=== PATIENT | male | born 1960 | race Caucasian/White ===

== ENCOUNTER 2017-01-02 20:57 | Emergency (ER) | payer MEDICAID ==
[2015-07-06 12:48] VITALS: BMI 35.9
[~2017-01-02 20:57] MED LIST: AMBIEN10 MG PO; BYSTOLIC5 MG PO; HYDROCODONE-APA1 TAB PO; LASIX20 MG PO; SYNTHROID150 MCG PO; SYNTHROID175 MCG PO; XANAX XR2 MG PO
== END 2017-01-02 22:45 | disposition home or self-care (01) ==
LOC: D.ER 20:57
DX: S00.12XA Contusion of left eyelid and periocular area, initial encounter (principal); W39.XXXA Discharge of firework, initial encounter; Y93.89 Activity, other specified; Y92.89 Other specified places as the place of occurrence of the external cause; H20.9 Unspecified iridocyclitis; E11.9 Type 2 diabetes mellitus without complications; F17.200 Nicotine dependence, unspecified, uncomplicated

== ENCOUNTER 2017-06-17 22:51 | Emergency (ER) | payer MEDICAID ==
[2015-07-06 12:48] VITALS: BMI 35.9
== END 2017-06-18 00:32 | disposition home or self-care (01) ==
LOC: D.ER 22:51
DX: S27.818A Other injury of esophagus (thoracic part), initial encounter (principal); X58.XXXA Exposure to other specified factors, initial encounter; Y93.89 Activity, other specified; Y92.019 Unspecified place in single-family (private) house as the place of occurrence of the external cause; E11.9 Type 2 diabetes mellitus without complications; F17.200 Nicotine dependence, unspecified, uncomplicated

== ENCOUNTER → 2017-06-26 08:45 | Outpatient (CLI) | payer MEDICAID ==
[2015-07-06 12:48] VITALS: BMI 35.9
== END | disposition home or self-care (01) ==
LOC: D.MRI 06-20 10:00
DX: K86.9 Disease of pancreas, unspecified (principal)

== ENCOUNTER 2017-07-25 07:06 | Outpatient (CLI) | payer MEDICAID ==
[~2017-07-25] VITALS: Ht 185.4 cm; Wt 97.7 kg
[2017-07-25 07:49] LABS: BASOPHILS 0.2 % (0-2); EOSINOPHILS 3.3 % (0-7); HEMOGLOBIN 17.1 g/dL (13.5-17.5); IMMATURE GRANULOCYTES 0.3 % (0-5); LYMPHOCYTES 16.7 % (15-50); MCH 27.8 pg (26.0-34.0); MCHC 33.5 g/dL (31.0-37.0); MCV 82.9 fL (80.0-100.0); MEAN PLATELET VOLUME 9.7 fL (7.4-10.4); MONOCYTES 10.3 % (2-11); NEUTROPHILS 69.2 % (40-80); PLATELET COUNT 269 10x3/uL (130-400); RBC 6.15 10x6/uL (4.20-6.10); RDW 14.8 % (11.5-14.5); WBC 10.7 10x3/uL (4.8-10.8)
[2017-07-25 08:08] LABS: APTT 36.2 SECONDS (22.8-39.4); CALCIUM 9.4 mg/dL (8.5-10.1); CARBON DIOXIDE 21.4 mmol/L (21.0-32.0); CREATININE - SERUM 1.1 mg/dL (0.6-1.3); INR 0.98 (0.85-1.17); POTASSIUM - SERUM 4.4 mmol/L (3.5-5.1); PROTIME 12.5 SECONDS (11.6-15.0)
[2017-07-25 08:15] VITALS: BP 120/81; Ht 185.4 cm; Wt 97.7 kg
== END 2017-07-25 15:03 | disposition home or self-care (01) ==
LOC: D.OPS 07:06 → D.CT 10:00 → D.OPS 15:03
PROVIDERS: General Practice
DX: K86.1 Other chronic pancreatitis (principal); F17.200 Nicotine dependence, unspecified, uncomplicated; I10 Essential (primary) hypertension; J44.9 Chronic obstructive pulmonary disease, unspecified; Z01.812 Encounter for preprocedural laboratory examination

== ENCOUNTER 2017-08-16 13:15 | Emergency (ER) | payer MEDICAID ==
[2017-07-25 08:15] VITALS: BMI 28.4
[2017-08-16 14:41] LABS: BASOPHILS 0.2 % (0-2); EOSINOPHILS 2.9 % (0-7); HEMATOCRIT 45.8 % (42.0-54.0); HEMOGLOBIN 15.7 g/dL (13.5-17.5); IMMATURE GRANULOCYTES 0.4 % (0-5); LYMPHOCYTES 14.8 % (15-50); MCH 27.6 pg (26.0-34.0); MCHC 34.3 g/dL (31.0-37.0); MCV 80.6 fL (80.0-100.0); MEAN PLATELET VOLUME 9.3 fL (7.4-10.4); MONOCYTES 11.4 % (2-11); NEUTROPHILS 70.3 % (40-80); PLATELET COUNT 269 10x3/uL (130-400); RBC 5.68 10x6/uL (4.20-6.10); WBC 10.2 10x3/uL (4.8-10.8)
[2017-08-16 14:54] LABS: ALBUMIN 3.5 g/dL (3.4-5.0); ANION GAP 14.6 mmol/L (8-16); BILIRUBIN - TOTAL 0.81 mg/dL (0.2-1.3); CALCIUM 9.3 mg/dL (8.5-10.1); CARBON DIOXIDE 22.8 mmol/L (21.0-32.0); CREATININE - SERUM 1.1 mg/dL (0.6-1.3); POTASSIUM - SERUM 4.4 mmol/L (3.5-5.1); PROTEIN - SERUM 7.8 g/dL (6.4-8.2)
== END 2017-08-16 16:15 | disposition home or self-care (01) ==
LOC: D.ER 13:15
PROVIDERS: Family Medicine
DX: R63.0 Anorexia (principal); R10.13 Epigastric pain; E11.9 Type 2 diabetes mellitus without complications

== ENCOUNTER 2017-10-25 15:06 | Inpatient (IN) | payer MEDICAID ==
[~2017-10-25] VITALS: Ht 185.4 cm; Wt 87.2 kg
[2017-10-25 15:49] LABS: BASOPHILS 0.2 % (0-2); EOSINOPHILS 2.5 % (0-7); HEMOGLOBIN 16.1 g/dL (13.5-17.5); IMMATURE GRANULOCYTES 0.9 % (0-5); LYMPHOCYTES 11.1 % (15-50); MCH 26.4 pg (26.0-34.0); MCHC 33.5 g/dL (31.0-37.0); MCV 78.6 fL (80.0-100.0); MEAN PLATELET VOLUME 9.7 fL (7.4-10.4); MONOCYTES 3.7 % (2-11); NEUTROPHILS 81.6 % (40-80); PLATELET COUNT 307 10x3/uL (130-400); RBC 6.11 10x6/uL (4.20-6.10); RDW 16.7 % (11.5-14.5); WBC 11.7 10x3/uL (4.8-10.8)
[2017-10-25 16:03] LABS: ALBUMIN 3.4 g/dL (3.4-5.0); ANION GAP 39.7 mmol/L (8-16); BILIRUBIN - TOTAL 1.84 mg/dL (0.2-1.3); CALCIUM 10.5 mg/dL (8.5-10.1); CARBON DIOXIDE 11.9 mmol/L (21.0-32.0); CREATININE - SERUM 1.6 mg/dL (0.6-1.3); POTASSIUM - SERUM 5.6 mmol/L (3.5-5.1); PROTEIN - SERUM 8.7 g/dL (6.4-8.2)
[2017-10-25 17:54] LABS: MAGNESIUM - SERUM 2.2 mg/dL (1.8-2.4)
[2017-10-25 17:57] LABS: KETONE - SERUM LARGE mg/dL (NEGATIVE)
[2017-10-25 23:00] VITALS: BP 106/77
[2017-10-26] VITALS (29 sets, daily range): BP systolic 66–122; BP diastolic 44–88; Ht 185.4 cm; Wt 87.2 kg
[2017-10-26 00:57] LABS: APPEARANCE CLEAR (CLEAR); BILIRUBIN NEGATIVE (NEGATIVE); COLOR YELLOW (YELLOW); GLUCOSE NEGATIVE (NEGATIVE); KETONE NEGATIVE (NEGATIVE); NITRITE NEGATIVE (NEGATIVE); PROTEIN NEGATIVE (NEGATIVE); SPECIFIC GRAVITY 1.015 (1.005-1.020); UROBILINOGEN NORMAL (NORMAL)
[2017-10-26 01:22] LABS: CALC OSMOLALITY 278 mosm/kg (275-300); CARBON DIOXIDE 21.9 mmol/L (21.0-32.0); CHLORIDE - SERUM 97 mmol/L (98-107); CREATININE - SERUM 1.2 mg/dL (0.6-1.3); GLUCOSE 151 mg/dL (74-106); MAGNESIUM - SERUM 1.9 mg/dL (1.8-2.4); PHOSPHOROUS 3.8 mg/dL (2.5-4.9); POTASSIUM - SERUM 4.1 mmol/L (3.5-5.1); SODIUM 134 mmol/L (136-145); UREA NITROGEN 34 mg/dL (7-18); eGFR NON AFRICAN AMERICAN 66 mL/min (90-120)
[2017-10-26 01:23] LABS: KETONE - SERUM MODERATE mg/dL (NEGATIVE)
[2017-10-26 03:40] LABS: BASOPHILS 0.3 % (0-2); EOSINOPHILS 7.7 % (0-7); HEMATOCRIT 39.5 % (42.0-54.0); HEMOGLOBIN 13.7 g/dL (13.5-17.5); IMMATURE GRANULOCYTES 0.7 % (0-5); MCH 26.2 pg (26.0-34.0); MCHC 34.7 g/dL (31.0-37.0); MCV 75.5 fL (80.0-100.0); MEAN PLATELET VOLUME 9.1 fL (7.4-10.4); MONOCYTES 4.9 % (2-11); NEUTROPHILS 69.4 % (40-80); PLATELET COUNT 205 10x3/uL (130-400); RBC 5.23 10x6/uL (4.20-6.10); RDW 16.3 % (11.5-14.5); WBC 9.8 10x3/uL (4.8-10.8)
[2017-10-26 04:03] LABS: ALBUMIN 2.6 g/dL (3.4-5.0); ANION GAP 13.8 mmol/L (8-16); BILIRUBIN - TOTAL 1.36 mg/dL (0.2-1.3); CREATININE - SERUM 1.3 mg/dL (0.6-1.3); POTASSIUM - SERUM 3.8 mmol/L (3.5-5.1); PROTEIN - SERUM 6.7 g/dL (6.4-8.2)
[2017-10-26] MEDS ORDERED: PROTONIX40 MG PO (06:33)
[2017-10-26] MEDS ORDERED: DURAGESIC1 PATCH .7 TD (06:37)
[2017-10-26] MEDS ORDERED: SYNJARDY PO (06:49)
[2017-10-26 08:49] LABS: CALC OSMOLALITY 266 mosm/kg (275-300); CALCIUM 8.7 mg/dL (8.5-10.1); CARBON DIOXIDE 19.1 mmol/L (21.0-32.0); CHLORIDE - SERUM 98 mmol/L (98-107); GLUCOSE 142 mg/dL (74-106); MAGNESIUM - SERUM 1.8 mg/dL (1.8-2.4); POTASSIUM - SERUM 3.9 mmol/L (3.5-5.1); SODIUM 129 mmol/L (136-145); UREA NITROGEN 28 mg/dL (7-18); eGFR NON AFRICAN AMERICAN 82 mL/min (90-120)
[2017-10-26 12:04] LABS: ANION GAP 12.5 mmol/L (8-16); CALCIUM 8.9 mg/dL (8.5-10.1); CREATININE - SERUM 1.1 mg/dL (0.6-1.3); MAGNESIUM - SERUM 1.9 mg/dL (1.8-2.4); POTASSIUM - SERUM 4.3 mmol/L (3.5-5.1)
[2017-10-26 12:05] LABS: CARBON DIOXIDE 26.8 mmol/L (21.0-32.0)
[2017-10-26 16:25] LABS: ANION GAP 13.4 mmol/L (8-16); CALCIUM 9.1 mg/dL (8.5-10.1); CARBON DIOXIDE 25.1 mmol/L (21.0-32.0); CREATININE - SERUM 1.1 mg/dL (0.6-1.3); MAGNESIUM - SERUM 1.8 mg/dL (1.8-2.4)
[2017-10-26 16:28] LABS: POTASSIUM - SERUM 3.5 mmol/L (3.5-5.1)
[2017-10-27] VITALS (22 sets, daily range): BP systolic 84–122; BP diastolic 57–85
[2017-10-27 04:08] LABS: BASOPHILS 0.1 % (0-2); EOSINOPHILS 10.1 % (0-7); HEMATOCRIT 38.8 % (42.0-54.0); HEMOGLOBIN 13.1 g/dL (13.5-17.5); IMMATURE GRANULOCYTES 0.7 % (0-5); LYMPHOCYTES 22.9 % (15-50); MCHC 33.8 g/dL (31.0-37.0); MEAN PLATELET VOLUME 9.5 fL (7.4-10.4); NEUTROPHILS 60.2 % (40-80); PLATELET COUNT 182 10x3/uL (130-400); RBC 5.04 10x6/uL (4.20-6.10); RDW 16.5 % (11.5-14.5); WBC 7.5 10x3/uL (4.8-10.8)
[2017-10-27 04:16] LABS: KETONE - SERUM NEGATIVE (NEGATIVE)
[2017-10-27 04:27] LABS: ALBUMIN 2.4 g/dL (3.4-5.0); ALKALINE PHOSPHATASE 143 U/L (46-116); ALT (SGPT) 24 U/L (10-68); CALC OSMOLALITY 269 mosm/kg (275-300); CALCIUM 8.8 mg/dL (8.5-10.1); CARBON DIOXIDE 27.2 mmol/L (21.0-32.0); CHLORIDE - SERUM 100 mmol/L (98-107); GLUCOSE 75 mg/dL (74-106); LIPASE 321 U/L (73-393); POTASSIUM - SERUM 3.2 mmol/L (3.5-5.1); PROTEIN - SERUM 6.2 g/dL (6.4-8.2); SODIUM 134 mmol/L (136-145); UREA NITROGEN 20 mg/dL (7-18); eGFR NON AFRICAN AMERICAN 82 mL/min (90-120)
[2017-10-28 02:59] LABS: BASOPHILS 0.3 % (0-2); EOSINOPHILS 9.1 % (0-7); HEMATOCRIT 39.2 % (42.0-54.0); HEMOGLOBIN 12.9 g/dL (13.5-17.5); IMMATURE GRANULOCYTES 0.8 % (0-5); LYMPHOCYTES 24.7 % (15-50); MCH 25.7 pg (26.0-34.0); MCHC 32.9 g/dL (31.0-37.0); MCV 78.1 fL (80.0-100.0); MEAN PLATELET VOLUME 9.1 fL (7.4-10.4); MONOCYTES 8.8 % (2-11); NEUTROPHILS 56.3 % (40-80); PLATELET COUNT 174 10x3/uL (130-400); RBC 5.02 10x6/uL (4.20-6.10); RDW 16.5 % (11.5-14.5); WBC 6.5 10x3/uL (4.8-10.8)
[2017-10-28 03:00] VITALS: BP 107/68
[2017-10-28 03:20] LABS: ALBUMIN 2.5 g/dL (3.4-5.0); ALKALINE PHOSPHATASE 152 U/L (46-116); ALT (SGPT) 24 U/L (10-68); CALCIUM 8.9 mg/dL (8.5-10.1); CARBON DIOXIDE 28.3 mmol/L (21.0-32.0); CHLORIDE - SERUM 102 mmol/L (98-107); LIPASE 393 U/L (73-393); PROTEIN - SERUM 6.4 g/dL (6.4-8.2); SODIUM 136 mmol/L (136-145); eGFR NON AFRICAN AMERICAN 82 mL/min (90-120)
[2017-10-28 03:22] LABS: CALC OSMOLALITY 274 mosm/kg (275-300); GLUCOSE 138 mg/dL (74-106); POTASSIUM - SERUM 4.1 mmol/L (3.5-5.1); UREA NITROGEN 14 mg/dL (7-18)
[2017-10-28 09:05] VITALS: BP 119/90
[2017-10-28] MEDS ORDERED: HUMULIN R100 U/ML SC (09:44)
[2017-10-28] MEDS ORDERED: LEVEMIR100 U/M1 SC (09:45)
== END 2017-10-28 10:37 | disposition home or self-care (01) | DRG 637 ==
LOC: D.ER 15:06 → D.ICU 17:37 → D.EDHOLD 17:37 → D.ICU 21:58
PROVIDERS: Emergency Medicine; Internal Medicine Nephrology; Physician Assistant
DX: E11.10 Type 2 diabetes mellitus with ketoacidosis without coma (principal); K85.90 Acute pancreatitis without necrosis or infection, unspecified; C25.9 Malignant neoplasm of pancreas, unspecified; N17.9 Acute kidney failure, unspecified; E87.1 Hypo-osmolality and hyponatremia; E03.9 Hypothyroidism, unspecified; F17.200 Nicotine dependence, unspecified, uncomplicated

== ENCOUNTER 2017-11-11 15:37 | Emergency (ER) | payer MEDICAID ==
[2017-10-26 10:55] VITALS: BMI 23.4
[~2017-11-11 15:37] MED LIST changes: +DURAGESIC1 PATCH .7 TD; +HUMULIN R100 U/ML SC; +LEVEMIR100 U/M1 SC; +PROTONIX40 MG PO; +SYNJARDY PO
[2017-11-11 16:17] LABS: BASOPHILS 0.5 % (0-2); EOSINOPHILS 3.4 % (0-7); HEMATOCRIT 38.7 % (42.0-54.0); HEMOGLOBIN 12.9 g/dL (13.5-17.5); IMMATURE GRANULOCYTES 0.2 % (0-5); LYMPHOCYTES 19.9 % (15-50); MCH 26.9 pg (26.0-34.0); MCHC 33.3 g/dL (31.0-37.0); MCV 80.8 fL (80.0-100.0); MONOCYTES 2.2 % (2-11); NEUTROPHILS 73.8 % (40-80); PLATELET COUNT 180 10x3/uL (130-400); RBC 4.79 10x6/uL (4.20-6.10); RDW 20.6 % (11.5-14.5); WBC 5.8 10x3/uL (4.8-10.8)
[2017-11-11 16:28] LABS: MAGNESIUM - SERUM 1.8 mg/dL (1.8-2.4)
[2017-11-11 16:30] LABS: ALBUMIN 2.5 g/dL (3.4-5.0); ALKALINE PHOSPHATASE 118 U/L (46-116); ALT (SGPT) 21 U/L (10-68); BILIRUBIN - TOTAL 1.44 mg/dL (0.2-1.3); CALC OSMOLALITY 280 mosm/kg (275-300); CALCIUM 8.9 mg/dL (8.5-10.1); CARBON DIOXIDE 24.5 mmol/L (21.0-32.0); CHLORIDE - SERUM 102 mmol/L (98-107); POTASSIUM - SERUM 4.1 mmol/L (3.5-5.1); PROTEIN - SERUM 7.1 g/dL (6.4-8.2); SODIUM 137 mmol/L (136-145); UREA NITROGEN 13 mg/dL (7-18); eGFR NON AFRICAN AMERICAN 82 mL/min (90-120)
[2017-11-11 16:39] LABS: GLUCOSE 230 mg/dL (74-106)
[2017-11-11 18:02] LABS: APPEARANCE CLEAR (CLEAR); BILIRUBIN NEGATIVE (NEGATIVE); COLOR YELLOW (YELLOW); GLUCOSE 100 mg/dL (NEGATIVE); KETONE NEGATIVE (NEGATIVE); NITRITE NEGATIVE (NEGATIVE); PROTEIN NEGATIVE (NEGATIVE); SPECIFIC GRAVITY 1.015 (1.005-1.020); UROBILINOGEN NORMAL (NORMAL)
[2017-11-11 18:03] LABS: BACTERIA NONE SEEN /hpf (NONE SEEN); EPITHELIAL CELLS 0-5 /hpf (0-5)
== END 2017-11-11 19:24 | disposition home or self-care (01) ==
LOC: D.ER 15:37
PROVIDERS: Family Medicine; Nurse Practitioner Family
DX: R73.9 Hyperglycemia, unspecified (principal); C25.9 Malignant neoplasm of pancreas, unspecified

== ENCOUNTER 2017-11-16 09:23 | Emergency (ER) | payer MEDICAID ==
[2017-10-26 10:55] VITALS: BMI 23.4
== END 2017-11-16 09:51 | disposition home or self-care (01) ==
LOC: D.ER 09:23
DX: I10 Essential (primary) hypertension (principal); F17.200 Nicotine dependence, unspecified, uncomplicated

== ENCOUNTER 2017-12-05 12:29 | Inpatient (IN) | payer MEDICAID ==
[~2017-12-05] VITALS: Ht 185.4 cm; Wt 85.6 kg
[2017-12-05 13:11] LABS: BASOPHILS 0.3 % (0-2); EOSINOPHILS 2.1 % (0-7); HEMATOCRIT 39.4 % (42.0-54.0); HEMOGLOBIN 13.1 g/dL (13.5-17.5); IMMATURE GRANULOCYTES 1.5 % (0-5); LYMPHOCYTES 15.6 % (15-50); MCH 27.1 pg (26.0-34.0); MCHC 33.2 g/dL (31.0-37.0); MCV 81.4 fL (80.0-100.0); MEAN PLATELET VOLUME 9.4 fL (7.4-10.4); NEUTROPHILS 73.5 % (40-80); RBC 4.84 10x6/uL (4.20-6.10); RDW 20.6 % (11.5-14.5); WBC 7.3 10x3/uL (4.8-10.8)
[2017-12-05 13:26] LABS: PLATELET COUNT 240 10x3/uL (130-400)
[2017-12-05 13:28] LABS: ALBUMIN 2.8 g/dL (3.4-5.0); ALT (SGPT) 425 U/L (10-68); AMYLASE - SERUM 117 U/L (25-115); BILIRUBIN - TOTAL 7.35 mg/dL (0.2-1.3); CALC OSMOLALITY 269 mosm/kg (275-300); CALCIUM 9.9 mg/dL (8.5-10.1); CHLORIDE - SERUM 97 mmol/L (98-107); CREATININE - SERUM 0.9 mg/dL (0.6-1.3); GLUCOSE 204 mg/dL (74-106); LIPASE 1213 U/L (73-393); POTASSIUM - SERUM 4.1 mmol/L (3.5-5.1); PROTEIN - SERUM 7.8 g/dL (6.4-8.2); SODIUM 131 mmol/L (136-145); UREA NITROGEN 16 mg/dL (7-18); eGFR NON AFRICAN AMERICAN > 90 mL/min (90-120)
[2017-12-05 13:32] LABS: ALKALINE PHOSPHATASE 1218 U/L (46-116)
[2017-12-05 15:41] LABS: APPEARANCE CLEAR (CLEAR); BILIRUBIN NEGATIVE (NEGATIVE); COLOR YELLOW (YELLOW); GLUCOSE 1000 mg/dL (NEGATIVE); KETONE NEGATIVE (NEGATIVE); NITRITE NEGATIVE (NEGATIVE); PROTEIN TRACE mg/dL (NEGATIVE); UROBILINOGEN NORMAL (NORMAL)
[2017-12-05 21:55] VITALS: BP 136/64
[2017-12-06 00:54] VITALS: BP 112/74
[2017-12-06 04:00] VITALS: BP 118/77
[2017-12-06 06:30] LABS: BASOPHILS 0.3 % (0-2); EOSINOPHILS 2.4 % (0-7); HEMATOCRIT 35.8 % (42.0-54.0); HEMOGLOBIN 12.2 g/dL (13.5-17.5); IMMATURE GRANULOCYTES 1.4 % (0-5); LYMPHOCYTES 13.4 % (15-50); MCH 27.5 pg (26.0-34.0); MCHC 34.1 g/dL (31.0-37.0); MCV 80.8 fL (80.0-100.0); MEAN PLATELET VOLUME 8.6 fL (7.4-10.4); MONOCYTES 7.1 % (2-11); NEUTROPHILS 75.4 % (40-80); RBC 4.43 10x6/uL (4.20-6.10); RDW 20.7 % (11.5-14.5); WBC 8.6 10x3/uL (4.8-10.8)
[2017-12-06 06:35] LABS: PLATELET COUNT 180 10x3/uL (130-400)
[2017-12-06 06:42] LABS: ALBUMIN 2.4 g/dL (3.4-5.0); BILIRUBIN - TOTAL 7.95 mg/dL (0.2-1.3); CALCIUM 9.1 mg/dL (8.5-10.1); CHLORIDE - SERUM 100 mmol/L (98-107); CREATININE - SERUM 0.7 mg/dL (0.6-1.3); MAGNESIUM - SERUM 1.5 mg/dL (1.8-2.4); PHOSPHOROUS 2.7 mg/dL (2.5-4.9); POTASSIUM - SERUM 4.3 mmol/L (3.5-5.1); PROTEIN - SERUM 6.8 g/dL (6.4-8.2); SODIUM 133 mmol/L (136-145); UREA NITROGEN 12 mg/dL (7-18); eGFR NON AFRICAN AMERICAN > 90 mL/min (90-120)
[2017-12-06 06:51] LABS: ALKALINE PHOSPHATASE 1051 U/L (46-116); ALT (SGPT) 315 U/L (10-68); CALC OSMOLALITY 265 mosm/kg (275-300); GLUCOSE 107 mg/dL (74-106)
[2017-12-06 08:59] VITALS: BP 120/76
[2017-12-06 10:28] VITALS: BMI 23.9
[2017-12-06 12:13] VITALS: BP 122/80
[2017-12-06 13:00] VITALS: Ht 185.4 cm; Wt 85.6 kg
[2017-12-06 13:18] LABS: % SATURATION 27 % (15-55); IRON 58 ug/dl (35-150); TOTAL IRON BIND CAPACITY 214 ug/dl (260-445); UNSAT IRON BIND CAPACITY 156 ug/dl (150-375)
[2017-12-06 13:19] LABS: APTT 29.8 SECONDS (22.8-39.4); INR 0.98 (0.85-1.17); PROTIME 12.6 SECONDS (11.6-15.0)
[2017-12-06 13:25] LABS: FERRITIN 364 ng/mL (3-244); LIPASE 510 U/L (73-393)
[2017-12-06 15:43] VITALS: BP 127/85
[2017-12-06 21:08] VITALS: BP 133/89
[2017-12-07 01:39] VITALS: BP 113/70
[2017-12-07 05:29] LABS: BASOPHILS 0.2 % (0-2); EOSINOPHILS 1.9 % (0-7); HEMATOCRIT 34.8 % (42.0-54.0); HEMOGLOBIN 11.6 g/dL (13.5-17.5); LYMPHOCYTES 11.9 % (15-50); MCHC 33.3 g/dL (31.0-37.0); MCV 80.9 fL (80.0-100.0); MEAN PLATELET VOLUME 9.4 fL (7.4-10.4); PLATELET COUNT 208 10x3/uL (130-400); RDW 20.9 % (11.5-14.5); WBC 8.9 10x3/uL (4.8-10.8)
[2017-12-07 05:54] LABS: ALBUMIN 2.3 g/dL (3.4-5.0); ALT (SGPT) 243 U/L (10-68); CALCIUM 8.7 mg/dL (8.5-10.1); CARBON DIOXIDE 22.2 mmol/L (21.0-32.0); CHLORIDE - SERUM 101 mmol/L (98-107); CREATININE - SERUM 0.7 mg/dL (0.6-1.3); LIPASE 656 U/L (73-393); MAGNESIUM - SERUM 1.7 mg/dL (1.8-2.4); POTASSIUM - SERUM 3.7 mmol/L (3.5-5.1); PROTEIN - SERUM 6.5 g/dL (6.4-8.2); SODIUM 134 mmol/L (136-145); UREA NITROGEN 9 mg/dL (7-18); eGFR NON AFRICAN AMERICAN > 90 mL/min (90-120)
[2017-12-07 05:55] LABS: ALKALINE PHOSPHATASE 1038 U/L (46-116); CALC OSMOLALITY 272 mosm/kg (275-300); GLUCOSE 205 mg/dL (74-106)
[2017-12-07 06:14] VITALS: BP 129/90
[2017-12-07 08:51] VITALS: BP 127/87
[2017-12-07 09:20] LABS: FOLATE (FOLIC ACID) - SERUM >20.0 ng/mL (>3.0)
[2017-12-07 12:04] VITALS: BP 120/80
[2017-12-07 16:22] VITALS: BP 117/82
[2017-12-07 22:02] VITALS: BP 128/84
[2017-12-08 01:48] VITALS: BP 126/89
[2017-12-08 05:20] VITALS: BP 125/83
[2017-12-08 05:23] LABS: BASOPHILS 0.4 % (0-2); EOSINOPHILS 2.5 % (0-7); HEMATOCRIT 35.2 % (42.0-54.0); HEMOGLOBIN 11.8 g/dL (13.5-17.5); LYMPHOCYTES 14.2 % (15-50); MCH 27.4 pg (26.0-34.0); MCHC 33.5 g/dL (31.0-37.0); MCV 81.7 fL (80.0-100.0); MEAN PLATELET VOLUME 9.5 fL (7.4-10.4); MONOCYTES 11.7 % (2-11); NEUTROPHILS 70.2 % (40-80); PLATELET COUNT 213 10x3/uL (130-400); RBC 4.31 10x6/uL (4.20-6.10); RDW 21.6 % (11.5-14.5); WBC 7.2 10x3/uL (4.8-10.8)
[2017-12-08 05:42] LABS: ALBUMIN 2.3 g/dL (3.4-5.0); ALKALINE PHOSPHATASE 984 U/L (46-116); ALT (SGPT) 202 U/L (10-68); CALCIUM 9.1 mg/dL (8.5-10.1); CARBON DIOXIDE 25.8 mmol/L (21.0-32.0); CHLORIDE - SERUM 100 mmol/L (98-107); CREATININE - SERUM 0.8 mg/dL (0.6-1.3); GLUCOSE 211 mg/dL (74-106); LIPASE 839 U/L (73-393); MAGNESIUM - SERUM 1.8 mg/dL (1.8-2.4); POTASSIUM - SERUM 3.9 mmol/L (3.5-5.1); PROTEIN - SERUM 6.8 g/dL (6.4-8.2); SODIUM 133 mmol/L (136-145); eGFR NON AFRICAN AMERICAN > 90 mL/min (90-120)
[2017-12-08 05:46] LABS: CALC OSMOLALITY 269 mosm/kg (275-300); UREA NITROGEN 6 mg/dL (7-18)
[2017-12-08 08:13] VITALS: BP 119/72
[2017-12-08] MEDS ORDERED: NICODERM C1 PATCH .1 TRANSDERM (09:51)
[2017-12-09] MEDS ORDERED: HUMULIN R100 U/ML SC (19:56)
== END 2017-12-08 14:20 | disposition home or self-care (01) | DRG 436 ==
LOC: D.ER 12:29 → D.EDHOLD 17:48 → OBSVTIME 17:48 → D.M2 17:58 → D.EDHOLD 17:58 → D.M2 17:58 → D.EDHOLD 17:58 → D.ER 17:58 → D.EDHOLD 18:18 → D.M2 18:18
PROVIDERS: Family Medicine; Internal Medicine Nephrology
DX: C25.9 Malignant neoplasm of pancreas, unspecified (principal); C78.7 Secondary malignant neoplasm of liver and intrahepatic bile duct; R17 Unspecified jaundice; F17.203 Nicotine dependence unspecified, with withdrawal; E87.1 Hypo-osmolality and hyponatremia; E03.9 Hypothyroidism, unspecified; E11.65 Type 2 diabetes mellitus with hyperglycemia; F41.9 Anxiety disorder, unspecified; K21.9 Gastro-esophageal reflux disease without esophagitis; D64.9 Anemia, unspecified; E83.42 Hypomagnesemia

== ENCOUNTER 2017-12-09 17:01 | Observation (INO) | payer MEDICAID ==
[~2017-12-09] VITALS: Ht 185.4 cm; Wt 84.8 kg
[~2017-12-09 17:01] MED LIST changes: +NICODERM C1 PATCH .1 TRANSDERM
[2017-12-09 17:33] LABS: BASOPHILS 0.2 % (0-2); EOSINOPHILS 1.2 % (0-7); HEMATOCRIT 36.4 % (42.0-54.0); HEMOGLOBIN 12.2 g/dL (13.5-17.5); IMMATURE GRANULOCYTES 0.6 % (0-5); LYMPHOCYTES 15.9 % (15-50); MCH 27.5 pg (26.0-34.0); MCHC 33.5 g/dL (31.0-37.0); MCV 82.2 fL (80.0-100.0); MEAN PLATELET VOLUME 9.6 fL (7.4-10.4); MONOCYTES 11.9 % (2-11); NEUTROPHILS 70.2 % (40-80); PLATELET COUNT 210 10x3/uL (130-400); RBC 4.43 10x6/uL (4.20-6.10); RDW 22.7 % (11.5-14.5); WBC 8.6 10x3/uL (4.8-10.8)
[2017-12-09 17:48] LABS: APPEARANCE CLEAR (CLEAR); BILIRUBIN NEGATIVE (NEGATIVE); COLOR YELLOW (YELLOW); GLUCOSE 1000 mg/dL (NEGATIVE); KETONE NEGATIVE (NEGATIVE); NITRITE NEGATIVE (NEGATIVE); PH 7.5 (5.0-6.0); PROTEIN 1+ mg/dL (NEGATIVE); UROBILINOGEN NORMAL (NORMAL)
[2017-12-09 17:52] LABS: BACTERIA FEW /hpf (NONE SEEN); EPITHELIAL CELLS RARE /hpf (0-5); WHITE CELLS - URINE 0-5 /hpf (0-5)
[2017-12-09 18:01] LABS: ALBUMIN 2.3 g/dL (3.4-5.0); ALKALINE PHOSPHATASE 857 U/L (46-116); AMYLASE - SERUM 81 U/L (25-115); BILIRUBIN - TOTAL 2.64 mg/dL (0.2-1.3); CALCIUM 9.1 mg/dL (8.5-10.1); CARBON DIOXIDE 28.1 mmol/L (21.0-32.0); CHLORIDE - SERUM 96 mmol/L (98-107); CREATININE - SERUM 0.9 mg/dL (0.6-1.3); LIPASE 1168 U/L (73-393); SODIUM 132 mmol/L (136-145); eGFR NON AFRICAN AMERICAN > 90 mL/min (90-120)
[2017-12-09 18:04] LABS: ALT (SGPT) 129 U/L (10-68); CALC OSMOLALITY 279 mosm/kg (275-300); GLUCOSE 397 mg/dL (74-106); POTASSIUM - SERUM 4.5 mmol/L (3.5-5.1); UREA NITROGEN 8 mg/dL (7-18)
[2017-12-09] MEDS ORDERED: HUMULIN R100 U/ML SC (19:56)
[2017-12-09 22:43] VITALS: BP 133/82; BMI 24.7
[2017-12-10 00:58] VITALS: BP 119/73
[2017-12-10 05:22] LABS: BASOPHILS 0.3 % (0-2); EOSINOPHILS 1.8 % (0-7); HEMATOCRIT 33.7 % (42.0-54.0); HEMOGLOBIN 11.2 g/dL (13.5-17.5); IMMATURE GRANULOCYTES 0.6 % (0-5); LYMPHOCYTES 14.4 % (15-50); MCH 27.3 pg (26.0-34.0); MCHC 33.2 g/dL (31.0-37.0); MCV 82.2 fL (80.0-100.0); MEAN PLATELET VOLUME 9.8 fL (7.4-10.4); MONOCYTES 14.8 % (2-11); NEUTROPHILS 68.1 % (40-80); PLATELET COUNT 192 10x3/uL (130-400); RDW 22.7 % (11.5-14.5); WBC 7.2 10x3/uL (4.8-10.8)
[2017-12-10 05:46] LABS: ALBUMIN 2.2 g/dL (3.4-5.0); ALKALINE PHOSPHATASE 769 U/L (46-116); ALT (SGPT) 103 U/L (10-68); CALC OSMOLALITY 275 mosm/kg (275-300); CALCIUM 8.8 mg/dL (8.5-10.1); CARBON DIOXIDE 27.7 mmol/L (21.0-32.0); CHLORIDE - SERUM 98 mmol/L (98-107); CREATININE - SERUM 0.8 mg/dL (0.6-1.3); POTASSIUM - SERUM 4.3 mmol/L (3.5-5.1); PROTEIN - SERUM 6.4 g/dL (6.4-8.2); SODIUM 132 mmol/L (136-145); UREA NITROGEN 8 mg/dL (7-18); eGFR NON AFRICAN AMERICAN > 90 mL/min (90-120)
[2017-12-10 05:50] LABS: GLUCOSE 340 mg/dL (74-106)
[2017-12-10 08:25] VITALS: BP 125/78
[2017-12-10 13:22] VITALS: BP 132/90
[2017-12-10 13:46] LABS: AMYLASE - SERUM 76 U/L (25-115); LIPASE 1021 U/L (73-393)
[2017-12-10 14:06] VITALS: Ht 185.4 cm; Wt 84.8 kg
[2017-12-10 16:55] VITALS: BP 124/86
[2017-12-10 20:00] VITALS: BP 137/81
[2017-12-11 00:18] VITALS: BP 115/76
[2017-12-11 04:10] VITALS: BP 118/79
[2017-12-11 06:18] LABS: BASOPHILS 0.2 % (0-2); EOSINOPHILS 1.6 % (0-7); HEMATOCRIT 38.5 % (42.0-54.0); HEMOGLOBIN 12.8 g/dL (13.5-17.5); IMMATURE GRANULOCYTES 0.4 % (0-5); LYMPHOCYTES 15.7 % (15-50); MCH 27.8 pg (26.0-34.0); MCHC 33.2 g/dL (31.0-37.0); MCV 83.5 fL (80.0-100.0); MONOCYTES 13.1 % (2-11); PLATELET COUNT 211 10x3/uL (130-400); RBC 4.61 10x6/uL (4.20-6.10); RDW 23.5 % (11.5-14.5); WBC 9.4 10x3/uL (4.8-10.8)
[2017-12-11 06:48] LABS: ALBUMIN 2.4 g/dL (3.4-5.0); ALKALINE PHOSPHATASE 798 U/L (46-116); ALT (SGPT) 87 U/L (10-68); CALCIUM 9.3 mg/dL (8.5-10.1); CARBON DIOXIDE 26.6 mmol/L (21.0-32.0); CHLORIDE - SERUM 98 mmol/L (98-107); CREATININE - SERUM 0.9 mg/dL (0.6-1.3); POTASSIUM - SERUM 4.3 mmol/L (3.5-5.1); PROTEIN - SERUM 7.3 g/dL (6.4-8.2); SODIUM 135 mmol/L (136-145); eGFR NON AFRICAN AMERICAN > 90 mL/min (90-120)
[2017-12-11 06:50] LABS: CALC OSMOLALITY 276 mosm/kg (275-300); GLUCOSE 250 mg/dL (74-106); UREA NITROGEN 11 mg/dL (7-18)
[2017-12-11 08:28] VITALS: BP 116/70
[2017-12-11] MEDS ORDERED: NICODERM C1 PATCH .1 TRANSDERM (12:52)
[2017-12-11 14:51] VITALS: BP 111/75
== END 2017-12-11 16:02 | disposition home or self-care (01) ==
LOC: D.ER 17:01 → D.MS 21:55 → OBSVTIME 21:55 → D.MS 21:55
PROVIDERS: Emergency Medicine; Family Medicine
DX: E11.65 Type 2 diabetes mellitus with hyperglycemia (principal); Z79.4 Long term (current) use of insulin; C25.9 Malignant neoplasm of pancreas, unspecified; F17.203 Nicotine dependence unspecified, with withdrawal

== ENCOUNTER 2017-12-27 14:14 | Emergency (ER) | payer MEDICAID ==
[2017-12-10 14:06] VITALS: BMI 24.6
[2017-12-27 19:14] VITALS: BP 000/000
== END 2017-12-27 14:35 | disposition left against medical advice (07) ==
LOC: D.ER 14:14
DX: R10.9 Unspecified abdominal pain (principal); R11.0 Nausea

== ENCOUNTER 2018-01-16 21:19 | Emergency (ER) | payer MEDICAID ==
[~2018-01-16] VITALS: Ht 185.4 cm; Wt 75.5 kg
[2018-01-16 21:25] VITALS: BP 102/66; Ht 185.4 cm; Wt 75.5 kg
[2018-01-16 22:06] LABS: BASOPHILS 0.2 % (0-2); EOSINOPHILS 1.7 % (0-7); HEMATOCRIT 34.8 % (42.0-54.0); HEMOGLOBIN 11.7 g/dL (13.5-17.5); IMMATURE GRANULOCYTES 0.6 % (0-5); LYMPHOCYTES 14.1 % (15-50); MCHC 33.6 g/dL (31.0-37.0); MCV 86.1 fL (80.0-100.0); MEAN PLATELET VOLUME 9.6 fL (7.4-10.4); MONOCYTES 8.7 % (2-11); NEUTROPHILS 74.7 % (40-80); RBC 4.04 10x6/uL (4.20-6.10); RDW 17.5 % (11.5-14.5); WBC 11.6 10x3/uL (4.8-10.8)
[2018-01-16 22:21] LABS: ALBUMIN 2.2 g/dL (3.4-5.0); ALKALINE PHOSPHATASE 328 U/L (46-116); ALT (SGPT) 34 U/L (10-68); BILIRUBIN - TOTAL 1.58 mg/dL (0.2-1.3); CALC OSMOLALITY 281 mosm/kg (275-300); CALCIUM 9.2 mg/dL (8.5-10.1); CARBON DIOXIDE 27.7 mmol/L (21.0-32.0); CHLORIDE - SERUM 99 mmol/L (98-107); POTASSIUM - SERUM 4.8 mmol/L (3.5-5.1); SODIUM 133 mmol/L (136-145); UREA NITROGEN 21 mg/dL (7-18); eGFR NON AFRICAN AMERICAN 82 mL/min (90-120)
[2018-01-16 22:22] LABS: GLUCOSE 332 mg/dL (74-106)
[2018-01-16 22:30] LABS: AMYLASE - SERUM 106 U/L (25-115); CKMB 0.5 U/L (0.0-3.6); CREATINE KINASE 20 UL (21-232); LIPASE 1321 U/L (73-393); TROPONIN-I < 0.017 ng/mL (0.000-0.060)
[2018-01-16 22:45] LABS: PLATELET COUNT 287 10x3/uL (130-400)
[2018-01-16 23:23] LABS: APPEARANCE CLEAR (CLEAR); BILIRUBIN NEGATIVE (NEGATIVE); COLOR YELLOW (YELLOW); GLUCOSE 1000 mg/dL (NEGATIVE); KETONE NEGATIVE (NEGATIVE); NITRITE NEGATIVE (NEGATIVE); PROTEIN 2+ mg/dL (NEGATIVE); UROBILINOGEN NORMAL (NORMAL)
[2018-01-16 23:24] LABS: BACTERIA FEW /hpf (NONE SEEN); EPITHELIAL CELLS 0-5 /hpf (0-5); RED CELLS - URINE 0-5 /hpf (0-5); WHITE CELLS - URINE 0-5 /hpf (0-5)
[2018-01-17] MEDS ORDERED: DILAUDID4 MG PO (05:19)
[2018-01-18] MEDS ORDERED: ZINC-220220 MG PO (11:47)
[2018-01-18] MEDS ORDERED: MIRALAX17 GM PO (11:48)
== END 2018-01-17 00:50 | disposition left against medical advice (07) ==
LOC: D.ER 21:19
PROVIDERS: Family Medicine
DX: I81 Portal vein thrombosis (principal); C25.9 Malignant neoplasm of pancreas, unspecified; C22.8 Malignant neoplasm of liver, primary, unspecified as to type; E11.9 Type 2 diabetes mellitus without complications

== ENCOUNTER 2018-01-17 03:43 | Inpatient (IN) | payer MEDICAID ==
[~2018-01-17] VITALS: Ht 185.4 cm; Wt 76.9 kg
[2018-01-17 04:35] LABS: BASOPHILS 0.1 % (0-2); EOSINOPHILS 1.6 % (0-7); HEMATOCRIT 33.7 % (42.0-54.0); HEMOGLOBIN 11.1 g/dL (13.5-17.5); MCH 28.7 pg (26.0-34.0); MCHC 32.9 g/dL (31.0-37.0); MCV 87.1 fL (80.0-100.0); MEAN PLATELET VOLUME 9.5 fL (7.4-10.4); NEUTROPHILS 77.3 % (40-80); PLATELET COUNT 248 10x3/uL (130-400); RBC 3.87 10x6/uL (4.20-6.10); RDW 17.8 % (11.5-14.5); WBC 8.8 10x3/uL (4.8-10.8)
[2018-01-17 04:52] LABS: ALBUMIN 2.2 g/dL (3.4-5.0); ANION GAP 10.8 mmol/L (8-16); BILIRUBIN - TOTAL 1.49 mg/dL (0.2-1.3); CALCIUM 8.8 mg/dL (8.5-10.1); CARBON DIOXIDE 27.8 mmol/L (21.0-32.0); CREATININE - SERUM 1.1 mg/dL (0.6-1.3); POTASSIUM - SERUM 4.6 mmol/L (3.5-5.1); PROTEIN - SERUM 7.6 g/dL (6.4-8.2)
[2018-01-17] MEDS ORDERED: DILAUDID4 MG PO (05:19)
[2018-01-17 06:27] VITALS: BP 106/68; BMI 21.9
[2018-01-17 07:39] VITALS: BP 117/76
[2018-01-17 10:41] LABS: APTT 34.7 SECONDS (22.8-39.4); INR 0.97 (0.85-1.17); PROTIME 12.5 SECONDS (11.6-15.0)
[2018-01-17 11:04] LABS: % SATURATION 11 % (15-55); IRON 20 ug/dl (35-150); TOTAL IRON BIND CAPACITY 178 ug/dl (260-445); UNSAT IRON BIND CAPACITY 158 ug/dl (150-375)
[2018-01-17 12:15] VITALS: BP 113/71
[2018-01-17 12:26] VITALS: BMI 21.9
[2018-01-17 13:21] VITALS: Ht 185.4 cm; Wt 76.9 kg
[2018-01-17 15:43] VITALS: BP 99/61
[2018-01-17 18:42] LABS: APPEARANCE CLEAR (CLEAR); BILIRUBIN NEGATIVE (NEGATIVE); COLOR DK YELLOW (YELLOW); GLUCOSE 1000 mg/dL (NEGATIVE); KETONE NEGATIVE (NEGATIVE); NITRITE NEGATIVE (NEGATIVE); PROTEIN TRACE mg/dL (NEGATIVE); UROBILINOGEN NORMAL (NORMAL)
[2018-01-17 20:01] VITALS: BP 102/52
[2018-01-17 20:04] VITALS: BP 102/52
[2018-01-18 00:25] VITALS: BP 102/52
[2018-01-18 04:59] VITALS: BP 110/42; BP 118/84
[2018-01-18 06:25] LABS: BASOPHILS 0.2 % (0-2); HEMATOCRIT 31.9 % (42.0-54.0); HEMOGLOBIN 10.4 g/dL (13.5-17.5); IMMATURE GRANULOCYTES 0.6 % (0-5); LYMPHOCYTES 13.4 % (15-50); MCHC 32.6 g/dL (31.0-37.0); MCV 85.8 fL (80.0-100.0); MEAN PLATELET VOLUME 9.9 fL (7.4-10.4); MONOCYTES 9.6 % (2-11); NEUTROPHILS 74.2 % (40-80); PLATELET COUNT 234 10x3/uL (130-400); RBC 3.72 10x6/uL (4.20-6.10); RDW 17.4 % (11.5-14.5); WBC 9.6 10x3/uL (4.8-10.8)
[2018-01-18 06:43] LABS: ALKALINE PHOSPHATASE 261 U/L (46-116); ALT (SGPT) 26 U/L (10-68); BILIRUBIN - TOTAL 1.35 mg/dL (0.2-1.3); CALCIUM 8.5 mg/dL (8.5-10.1); CARBON DIOXIDE 22.5 mmol/L (21.0-32.0); CHLORIDE - SERUM 102 mmol/L (98-107); LIPASE 1207 U/L (73-393); SODIUM 133 mmol/L (136-145); UREA NITROGEN 21 mg/dL (7-18)
[2018-01-18 06:49] LABS: CALC OSMOLALITY 273 mosm/kg (275-300); CREATININE - SERUM 0.8 mg/dL (0.6-1.3); GLUCOSE 195 mg/dL (74-106); POTASSIUM - SERUM 3.6 mmol/L (3.5-5.1); eGFR NON AFRICAN AMERICAN > 90 mL/min (90-120)
[2018-01-18 08:29] LABS: FOLATE (FOLIC ACID) - SERUM 13.6 ng/mL (>3.0)
[2018-01-18 09:36] VITALS: BP 107/63
[2018-01-18] MEDS ORDERED: ZINC-220220 MG PO (11:47)
[2018-01-18] MEDS ORDERED: MIRALAX17 GM PO (11:48)
== END 2018-01-18 14:24 | disposition home or self-care (01) | DRG 439 ==
LOC: D.ER 03:43 → D.EDHOLD 04:10 → D.MS 04:10
PROVIDERS: Family Medicine; Internal Medicine Nephrology
DX: K85.90 Acute pancreatitis without necrosis or infection, unspecified (principal); C25.9 Malignant neoplasm of pancreas, unspecified; C78.7 Secondary malignant neoplasm of liver and intrahepatic bile duct; F17.213 Nicotine dependence, cigarettes, with withdrawal; K76.6 Portal hypertension; E87.1 Hypo-osmolality and hyponatremia; N17.9 Acute kidney failure, unspecified; K86.1 Other chronic pancreatitis; E11.65 Type 2 diabetes mellitus with hyperglycemia; F41.9 Anxiety disorder, unspecified; D63.8 Anemia in other chronic diseases classified elsewhere; E03.9 Hypothyroidism, unspecified; Z91.14 Patient's other noncompliance with medication regimen

== ENCOUNTER 2018-01-21 23:05 | Inpatient (IN) | payer MEDICAID ==
[~2018-01-21] VITALS: Ht 185.4 cm; Wt 76.7 kg
--- NOTE | ~2018-01-21 | MORECARE ---
CASE MANAGEMENT DISCHARGE SUMMARY PATIENT: YENNI TAVERA UNIT: [id number] ADM DATE: 01/22/18 AGE: 57 : 62 SEX: M ROOM/BED: D.2201 AUTHOR: AICHA, CLINICAL LABORATORY MANAGER PHYSICIAN: REFERRING PHYSICIAN: PORSCHE MERCADO MD DATE OF SERVICE: 01/22/18 Discharge Plan Patient Name: YENNI TAVERA Facility: [facility]:[place] : 1960 Planned Disposition: Anticipated Discharge Date: Discharge Date: 01/29/2018 Expected LOS: 0 Initial Reviewer: [email or web address] Initial Review Date: 01/25/2018 Generated: 01/31/18 11:25 am Comments DCP- Discharge Planning Updated by [email or web address]: Kathi Dumas on 01/25/18 1:[address] Patient Name: YENNI TAVERA Admission Status: ER Accout number: [id number] Admission Date: 01-22-2018 : 1960 Admission Diagnosis:NAUSEA WITH VOMITING, UNSPECIFIED Attending: PORSCHE MERCADO Current LOS: 3 Anticipated DC Date: Planned Disposition: Primary Insurance: [place]ICAID [place] Discharge Planning Comments: CM met with patient about discharge planning and needs. [facility]. [facility] has appointment with oncology at [facility] on 01/31 at 13:40. [facility] want's to be discharged from here before his appointment. [facility] with [facility] Home environment safe. [facility] had follow up appointment with MD scheduled after last discharge but was readmitted before his appointment. Patient wants to know if can pick up and delivery driver his cane from [facility]. CM will continue to follow and assist patient as needed with discharge planning/needs. Submersible Pilot: Kathi Dumas DCPIA - Discharge Planning Initial Assessment Updated by [email or web address]: Kathi Dumas on 01/25/18 2:13 pm * Is the patient Alert and Oriented? Yes * How many steps to enterexit or inside your home? * PCP Abelardo * [facility] * Preadmission Environment Home with Family * ADLs Independent * Equipment Bedside Commode * Other Equipment Bedside commode, rolling walker,shower chair, wheelchair, cane, glucometer * List name and contact numbers for known caregivers / representatives who currently or will assist patient after discharge: radha Garcia, [phone] * Verbal permission to speak to the caregivers and representatives has been obtained from the patient. Yes * Community resources currently utilized None * Additional services required to return to the preadmission environment? No * Can the patient safely return to the preadmission environment? Yes * Has this patient been hospitalized within the prior 30 days at any hospital? Yes Patient Name: YENNI TAVERA Page [id number] All edits/amendments must be made on the electronic document DICTATION DATE: 01/31/18 1024 FILLING AND PACKING SUPERVISOR: 01/31/18 1024 RPT#: [id number] DC DATE:01/29/18 STATUS: DIS IN [facility] [address] [place] [address] END OF REPORT
[~2018-01-21 23:05] MED LIST changes: +DILAUDID4 MG PO; +MIRALAX17 GM PO; +ZINC-220220 MG PO
[2018-01-22 00:09] LABS: HEMATOCRIT 34.1 % (42.0-54.0); HEMOGLOBIN 11.5 g/dL (13.5-17.5); LYMPHOCYTES 12.2 % (15-50); MCH 28.3 pg (26.0-34.0); MCHC 33.7 g/dL (31.0-37.0); NEUTROPHILS 80.6 % (40-80); PLATELET COUNT 278 10x3/uL (130-400); RBC 4.06 10x6/uL (4.20-6.10); RDW 16.7 % (11.5-14.5); WBC 11.1 10x3/uL (4.8-10.8)
[2018-01-22 00:23] LABS: ALBUMIN 2.2 g/dL (3.4-5.0); ALKALINE PHOSPHATASE 288 U/L (46-116); ALT (SGPT) 28 U/L (10-68); BILIRUBIN - TOTAL 1.58 mg/dL (0.2-1.3); CALC OSMOLALITY 282 mosm/kg (275-300); CARBON DIOXIDE 27.7 mmol/L (21.0-32.0); CHLORIDE - SERUM 98 mmol/L (98-107); CREATININE - SERUM 0.8 mg/dL (0.6-1.3); POTASSIUM - SERUM 4.2 mmol/L (3.5-5.1); PROTEIN - SERUM 7.8 g/dL (6.4-8.2); SODIUM 132 mmol/L (136-145); UREA NITROGEN 17 mg/dL (7-18); eGFR NON AFRICAN AMERICAN > 90 mL/min (90-120)
[2018-01-22 00:24] LABS: GLUCOSE 384 mg/dL (74-106)
[2018-01-22 00:25] LABS: AMYLASE - SERUM 105 U/L (25-115); LIPASE 1393 U/L (73-393)
[2018-01-22 00:32] LABS: TROPONIN-I < 0.017 ng/mL (0.000-0.060)
[2018-01-22 03:18] LABS: APPEARANCE CLEAR (CLEAR); COLOR YELLOW (YELLOW); NITRITE NEGATIVE (NEGATIVE); PROTEIN 1+ mg/dL (NEGATIVE)
[2018-01-22 03:19] LABS: BILIRUBIN NEGATIVE (NEGATIVE); GLUCOSE 1000 mg/dL (NEGATIVE); KETONE NEGATIVE (NEGATIVE); UROBILINOGEN NORMAL (NORMAL)
[2018-01-22 03:22] LABS: BACTERIA FEW /hpf (NONE SEEN); EPITHELIAL CELLS 0-5 /hpf (0-5); RED CELLS - URINE 0-5 /hpf (0-5); WHITE CELLS - URINE 0-5 /hpf (0-5)
[2018-01-22 03:23] LABS: MUCUS <1+ /lpf (NONE SEEN)
[2018-01-22 06:26] LABS: TROPONIN-I < 0.017 ng/mL (0.000-0.060)
[2018-01-22 08:55] LABS: CKMB 0.4 U/L (0.0-3.6); CREATINE KINASE 37 UL (21-232)
[2018-01-22 09:45] VITALS: BP 116/79
[2018-01-22 12:56] LABS: CREATINE KINASE 198 UL (21-232)
[2018-01-22 12:57] LABS: TROPONIN-I < 0.017 ng/mL (0.000-0.060)
[2018-01-22 16:52] VITALS: BP 121/79
[2018-01-22 18:51] LABS: CKMB 1.1 U/L (0.0-3.6); CREATINE KINASE 147 UL (21-232)
[2018-01-22 18:52] LABS: TROPONIN-I < 0.017 ng/mL (0.000-0.060)
[2018-01-22 18:55] VITALS: BP 124/81
[2018-01-22 20:04] VITALS: BP 120/72
[2018-01-22 23:59] VITALS: BP 113/70
[2018-01-23] VITALS (7 sets, daily range): BP systolic 104–129; BP diastolic 65–80; Ht 185.4 cm; Wt 76.7 kg
[2018-01-23 05:36] LABS: BASOPHILS 0.1 % (0-2); EOSINOPHILS 1.4 % (0-7); HEMATOCRIT 30.3 % (42.0-54.0); HEMOGLOBIN 10.4 g/dL (13.5-17.5); IMMATURE GRANULOCYTES 0.7 % (0-5); LYMPHOCYTES 12.5 % (15-50); MCH 28.9 pg (26.0-34.0); MCHC 34.3 g/dL (31.0-37.0); MCV 84.2 fL (80.0-100.0); MONOCYTES 9.2 % (2-11); NEUTROPHILS 76.1 % (40-80); RDW 16.9 % (11.5-14.5); WBC 8.6 10x3/uL (4.8-10.8)
[2018-01-23 05:50] LABS: ALKALINE PHOSPHATASE 246 U/L (46-116); ALT (SGPT) 25 U/L (10-68); BILIRUBIN - TOTAL 1.48 mg/dL (0.2-1.3); CALCIUM 8.5 mg/dL (8.5-10.1); CARBON DIOXIDE 25.7 mmol/L (21.0-32.0); CHLORIDE - SERUM 101 mmol/L (98-107); CREATININE - SERUM 0.6 mg/dL (0.6-1.3); POTASSIUM - SERUM 4.1 mmol/L (3.5-5.1); PROTEIN - SERUM 6.1 g/dL (6.4-8.2); SODIUM 134 mmol/L (136-145); UREA NITROGEN 13 mg/dL (7-18); eGFR NON AFRICAN AMERICAN > 90 mL/min (90-120)
[2018-01-23 05:52] LABS: PLATELET COUNT 197 10x3/uL (130-400)
[2018-01-23 06:00] LABS: CALC OSMOLALITY 273 mosm/kg (275-300); GLUCOSE 215 mg/dL (74-106)
[2018-01-23 11:25] LABS: AMYLASE - SERUM 131 U/L (25-115)
[2018-01-23 11:28] LABS: LIPASE 1712 U/L (73-393)
[2018-01-24 04:00] VITALS: BP 113/74
[2018-01-24 06:00] LABS: BASOPHILS 0.1 % (0-2); EOSINOPHILS 1.9 % (0-7); HEMATOCRIT 30.3 % (42.0-54.0); HEMOGLOBIN 9.9 g/dL (13.5-17.5); IMMATURE GRANULOCYTES 0.5 % (0-5); LYMPHOCYTES 12.6 % (15-50); MCH 27.2 pg (26.0-34.0); MCHC 32.7 g/dL (31.0-37.0); MCV 83.2 fL (80.0-100.0); MEAN PLATELET VOLUME 9.7 fL (7.4-10.4); MONOCYTES 9.6 % (2-11); NEUTROPHILS 75.3 % (40-80); PLATELET COUNT 194 10x3/uL (130-400); RBC 3.64 10x6/uL (4.20-6.10); RDW 16.8 % (11.5-14.5); WBC 7.9 10x3/uL (4.8-10.8)
[2018-01-24 06:32] LABS: ALBUMIN 1.9 g/dL (3.4-5.0); ALKALINE PHOSPHATASE 211 U/L (46-116); ALT (SGPT) 19 U/L (10-68); AMYLASE - SERUM 123 U/L (25-115); BILIRUBIN - TOTAL 1.36 mg/dL (0.2-1.3); CALCIUM 8.4 mg/dL (8.5-10.1); CARBON DIOXIDE 24.8 mmol/L (21.0-32.0); CHLORIDE - SERUM 100 mmol/L (98-107); CREATININE - SERUM 0.6 mg/dL (0.6-1.3); GLUCOSE 222 mg/dL (74-106); POTASSIUM - SERUM 3.9 mmol/L (3.5-5.1); PROTEIN - SERUM 5.7 g/dL (6.4-8.2); SODIUM 133 mmol/L (136-145); eGFR NON AFRICAN AMERICAN > 90 mL/min (90-120)
[2018-01-24 06:39] LABS: CALC OSMOLALITY 271 mosm/kg (275-300); LIPASE 1697 U/L (73-393); UREA NITROGEN 9 mg/dL (7-18)
[2018-01-24 09:50] VITALS: BP 124/73
[2018-01-24 13:45] VITALS: BP 116/76
[2018-01-24 18:26] VITALS: BP 102/61
[2018-01-24 19:26] VITALS: BP 126/86
[2018-01-24 20:08] VITALS: BP 112/73
[2018-01-25 05:20] LABS: BASOPHILS 0.1 % (0-2); EOSINOPHILS 1.2 % (0-7); HEMATOCRIT 30.7 % (42.0-54.0); HEMOGLOBIN 9.9 g/dL (13.5-17.5); IMMATURE GRANULOCYTES 0.7 % (0-5); LYMPHOCYTES 14.9 % (15-50); MCHC 32.2 g/dL (31.0-37.0); MCV 83.9 fL (80.0-100.0); MEAN PLATELET VOLUME 9.8 fL (7.4-10.4); NEUTROPHILS 74.1 % (40-80); PLATELET COUNT 206 10x3/uL (130-400); RBC 3.66 10x6/uL (4.20-6.10); RDW 16.9 % (11.5-14.5); WBC 8.6 10x3/uL (4.8-10.8)
[2018-01-25 05:27] LABS: ALBUMIN 1.9 g/dL (3.4-5.0); AMYLASE - SERUM 131 U/L (25-115); CALC OSMOLALITY 269 mosm/kg (275-300); CALCIUM 8.3 mg/dL (8.5-10.1); CARBON DIOXIDE 28.1 mmol/L (21.0-32.0); CHLORIDE - SERUM 100 mmol/L (98-107); CREATININE - SERUM 0.7 mg/dL (0.6-1.3); GLUCOSE 175 mg/dL (74-106); LIPASE 1389 U/L (73-393); POTASSIUM - SERUM 4.2 mmol/L (3.5-5.1); SODIUM 134 mmol/L (136-145); UREA NITROGEN 7 mg/dL (7-18); eGFR NON AFRICAN AMERICAN > 90 mL/min (90-120)
[2018-01-25 05:52] LABS: ALKALINE PHOSPHATASE 224 U/L (46-116); ALT (SGPT) 19 U/L (10-68); BILIRUBIN - TOTAL 1.33 mg/dL (0.2-1.3); PROTEIN - SERUM 5.9 g/dL (6.4-8.2)
[2018-01-25 08:09] VITALS: BP 111/74
[2018-01-25 12:47] VITALS: BP 115/73
[2018-01-25 15:58] VITALS: BP 131/78
[2018-01-25 20:05] VITALS: BP 107/68
[2018-01-26 05:00] VITALS: BP 114/72
[2018-01-26 05:30] LABS: BASOPHILS 0.1 % (0-2); EOSINOPHILS 1.6 % (0-7); HEMATOCRIT 30.5 % (42.0-54.0); HEMOGLOBIN 9.9 g/dL (13.5-17.5); IMMATURE GRANULOCYTES 0.3 % (0-5); LYMPHOCYTES 12.6 % (15-50); MCH 27.2 pg (26.0-34.0); MCHC 32.5 g/dL (31.0-37.0); MCV 83.8 fL (80.0-100.0); MONOCYTES 8.9 % (2-11); NEUTROPHILS 76.5 % (40-80); PLATELET COUNT 209 10x3/uL (130-400); RBC 3.64 10x6/uL (4.20-6.10); RDW 16.8 % (11.5-14.5); WBC 8.7 10x3/uL (4.8-10.8)
[2018-01-26 05:50] LABS: ALBUMIN 1.9 g/dL (3.4-5.0); ALKALINE PHOSPHATASE 230 U/L (46-116); ALT (SGPT) 15 U/L (10-68); AMYLASE - SERUM 133 U/L (25-115); BILIRUBIN - TOTAL 1.26 mg/dL (0.2-1.3); CALC OSMOLALITY 265 mosm/kg (275-300); CALCIUM 8.5 mg/dL (8.5-10.1); CARBON DIOXIDE 28.3 mmol/L (21.0-32.0); CHLORIDE - SERUM 98 mmol/L (98-107); CREATININE - SERUM 0.7 mg/dL (0.6-1.3); GLUCOSE 225 mg/dL (74-106); LIPASE 1452 U/L (73-393); PROTEIN - SERUM 6.4 g/dL (6.4-8.2); SODIUM 130 mmol/L (136-145); UREA NITROGEN 7 mg/dL (7-18); eGFR NON AFRICAN AMERICAN > 90 mL/min (90-120)
[2018-01-26 08:49] VITALS: BP 120/87
[2018-01-26 12:38] VITALS: BP 112/72
[2018-01-26 16:57] VITALS: BP 124/87
[2018-01-26 20:30] VITALS: BP 122/80
[2018-01-27 04:30] VITALS: BP 129/85
[2018-01-27 05:04] LABS: BASOPHILS 0.1 % (0-2); EOSINOPHILS 1.8 % (0-7); HEMATOCRIT 31.1 % (42.0-54.0); HEMOGLOBIN 9.9 g/dL (13.5-17.5); IMMATURE GRANULOCYTES 0.4 % (0-5); LYMPHOCYTES 14.1 % (15-50); MCHC 31.8 g/dL (31.0-37.0); MEAN PLATELET VOLUME 9.7 fL (7.4-10.4); MONOCYTES 10.5 % (2-11); NEUTROPHILS 73.1 % (40-80); PLATELET COUNT 222 10x3/uL (130-400); RBC 3.66 10x6/uL (4.20-6.10); RDW 16.8 % (11.5-14.5); WBC 7.9 10x3/uL (4.8-10.8)
[2018-01-27 05:24] LABS: ALKALINE PHOSPHATASE 227 U/L (46-116); ALT (SGPT) 15 U/L (10-68); AMYLASE - SERUM 147 U/L (25-115); CALC OSMOLALITY 267 mosm/kg (275-300); CALCIUM 8.2 mg/dL (8.5-10.1); CARBON DIOXIDE 31.9 mmol/L (21.0-32.0); CHLORIDE - SERUM 98 mmol/L (98-107); CREATININE - SERUM 0.7 mg/dL (0.6-1.3); GLUCOSE 184 mg/dL (74-106); SODIUM 132 mmol/L (136-145); UREA NITROGEN 7 mg/dL (7-18); eGFR NON AFRICAN AMERICAN > 90 mL/min (90-120)
[2018-01-27 05:25] LABS: LIPASE 1654 U/L (73-393)
[2018-01-27 09:10] VITALS: BP 140/92
[2018-01-27 14:32] VITALS: BP 117/76
[2018-01-27 17:00] VITALS: BP 117/69
[2018-01-27 22:19] VITALS: BP 123/80
[2018-01-28 05:48] LABS: BASOPHILS 0.1 % (0-2); EOSINOPHILS 1.6 % (0-7); HEMATOCRIT 30.6 % (42.0-54.0); IMMATURE GRANULOCYTES 0.4 % (0-5); MCH 27.2 pg (26.0-34.0); MCHC 32.7 g/dL (31.0-37.0); MCV 83.4 fL (80.0-100.0); MEAN PLATELET VOLUME 9.8 fL (7.4-10.4); MONOCYTES 9.6 % (2-11); NEUTROPHILS 71.3 % (40-80); PLATELET COUNT 219 10x3/uL (130-400); RBC 3.67 10x6/uL (4.20-6.10); RDW 16.8 % (11.5-14.5)
[2018-01-28 06:08] LABS: ALBUMIN 1.9 g/dL (3.4-5.0); ALKALINE PHOSPHATASE 230 U/L (46-116); ALT (SGPT) 15 U/L (10-68); AMYLASE - SERUM 152 U/L (25-115); BILIRUBIN - TOTAL 1.07 mg/dL (0.2-1.3); CALC OSMOLALITY 266 mosm/kg (275-300); CALCIUM 8.7 mg/dL (8.5-10.1); CARBON DIOXIDE 28.7 mmol/L (21.0-32.0); CHLORIDE - SERUM 98 mmol/L (98-107); CREATININE - SERUM 0.6 mg/dL (0.6-1.3); GLUCOSE 199 mg/dL (74-106); POTASSIUM - SERUM 3.9 mmol/L (3.5-5.1); PROTEIN - SERUM 6.5 g/dL (6.4-8.2); SODIUM 131 mmol/L (136-145); UREA NITROGEN 8 mg/dL (7-18); eGFR NON AFRICAN AMERICAN > 90 mL/min (90-120)
[2018-01-28 06:21] LABS: LIPASE 1840 U/L (73-393)
[2018-01-28 06:35] VITALS: BP 120/83
[2018-01-28 09:12] VITALS: BP 116/79
[2018-01-28 12:52] VITALS: BP 105/66
[2018-01-29 05:00] VITALS: BP 123/80
[2018-01-29 08:37] VITALS: BP 114/79
[2018-01-29 12:29] VITALS: BP 103/66
[2018-01-29] MEDS ORDERED: LEVAQUIN750 MG PO (16:32)
[2018-01-29] MEDS ORDERED: FLAGYL500 MG PO (16:32)
[2018-01-29] MEDS ORDERED: COLACE100 MG PO (16:33)
[2018-01-29] MEDS ORDERED: CARAFATE1 G PO (16:33)
[2018-01-29] MEDS ORDERED: MIRALAX17 GM PO (16:33)
[2018-01-29] MEDS ORDERED: CREON (PANCRELI1 CAP PO (16:33)
[2018-01-29 16:35] VITALS: BP 103/73
== END 2018-01-29 17:22 | disposition home or self-care (01) | DRG 438 ==
LOC: D.ER 23:05 → D.MS 01-22 05:43 → D.EDHOLD 01-22 05:43 → D.MS 01-22 20:41
PROVIDERS: Family Medicine
DX: K85.90 Acute pancreatitis without necrosis or infection, unspecified (principal); E43 Unspecified severe protein-calorie malnutrition; F17.213 Nicotine dependence, cigarettes, with withdrawal; C25.9 Malignant neoplasm of pancreas, unspecified; C78.7 Secondary malignant neoplasm of liver and intrahepatic bile duct; E87.1 Hypo-osmolality and hyponatremia; K52.9 Noninfective gastroenteritis and colitis, unspecified; K86.1 Other chronic pancreatitis; Z68.22 Body mass index [BMI] 22.0-22.9, adult; E86.0 Dehydration; E11.65 Type 2 diabetes mellitus with hyperglycemia; Z79.4 Long term (current) use of insulin; E03.9 Hypothyroidism, unspecified; F41.9 Anxiety disorder, unspecified; Z91.19 Patient's noncompliance with other medical treatment and regimen; K59.00 Constipation, unspecified

== ENCOUNTER 2018-02-20 12:00 | Emergency (ER) | payer MEDICAID ==
[~2018-02-20 12:00] MED LIST changes: +CARAFATE1 G PO; +COLACE100 MG PO; +CREON (PANCRELI1 CAP PO; +FLAGYL500 MG PO; +LEVAQUIN750 MG PO
[2018-02-20 12:09] VITALS: Ht 185.4 cm
[2018-02-20 13:26] LABS: BASOPHILS 0.1 % (0-2); EOSINOPHILS 0.2 % (0-7); HEMATOCRIT 31.4 % (42.0-54.0); HEMOGLOBIN 10.9 g/dL (13.5-17.5); IMMATURE GRANULOCYTES 0.4 % (0-5); LYMPHOCYTES 7.4 % (15-50); MCH 27.3 pg (26.0-34.0); MCHC 34.7 g/dL (31.0-37.0); MCV 78.5 fL (80.0-100.0); MONOCYTES 7.5 % (2-11); NEUTROPHILS 84.4 % (40-80); RDW 16.6 % (11.5-14.5); WBC 13.7 10x3/uL (4.8-10.8)
[2018-02-20 13:30] LABS: PLATELET COUNT 152 10x3/uL (130-400)
[2018-02-20 13:40] LABS: ALBUMIN 1.8 g/dL (3.4-5.0); ALKALINE PHOSPHATASE 618 U/L (46-116); ALT (SGPT) 34 U/L (10-68); AMYLASE - SERUM 64 U/L (25-115); BILIRUBIN - TOTAL 1.35 mg/dL (0.2-1.3); CALC OSMOLALITY 273 mosm/kg (275-300); CALCIUM 8.5 mg/dL (8.5-10.1); CARBON DIOXIDE 25.9 mmol/L (21.0-32.0); CHLORIDE - SERUM 99 mmol/L (98-107); CREATININE - SERUM 0.9 mg/dL (0.6-1.3); GLUCOSE 179 mg/dL (74-106); LIPASE 593 U/L (73-393); POTASSIUM - SERUM 4.5 mmol/L (3.5-5.1); PROTEIN - SERUM 7.1 g/dL (6.4-8.2); SODIUM 133 mmol/L (136-145); UREA NITROGEN 24 mg/dL (7-18); eGFR NON AFRICAN AMERICAN > 90 mL/min (90-120)
[2018-02-20 15:20] VITALS: BP 106/66
== END 2018-02-20 15:21 | disposition home or self-care (01) ==
LOC: D.ER 12:00
PROVIDERS: Family Medicine
DX: C25.9 Malignant neoplasm of pancreas, unspecified (principal); K86.1 Other chronic pancreatitis; E11.9 Type 2 diabetes mellitus without complications; E07.9 Disorder of thyroid, unspecified; F17.200 Nicotine dependence, unspecified, uncomplicated

== ENCOUNTER 2018-03-05 16:24 | Emergency (ER) | payer MEDICAID ==
[2018-03-05 16:24] VITALS: Ht 185.4 cm
== END 2018-03-05 19:03 ==
LOC: D.ER 16:24
DX: J96.90 Respiratory failure, unspecified, unspecified whether with hypoxia or hypercapnia (principal); C25.9 Malignant neoplasm of pancreas, unspecified